=== PATIENT | female | born 1975 | race Caucasian/White ===

== ENCOUNTER 2017-06-07 14:13 | Emergency (ER) | payer OTHER ==
[~2017-06-07] VITALS: Ht 165.1 cm; Wt 109.1 kg
[2017-06-07 14:18] VITALS: BP 136/81; TEMP 98.8
[2017-06-07 15:19] LABS: PH 5 (5-8); URINE APPEARANCE Clear; URINE BACTERIA None Seen /hpf; URINE BILIRUBIN Negative (NEGATIVE); URINE BLOOD Negative (NEGATIVE); URINE COLOR Amber; URINE GLUCOSE Negative (NEGATIVE); URINE KETONE Negative (NEGATIVE); URINE UROBILINOGEN Negative (NEGATIVE)
[2017-06-07] MEDS ORDERED: CYMBALTA 60MG60 MG PO (15:39)
[2017-06-07] MEDS ORDERED: DESYREL 50MG50 MG PO (15:39)
[2017-06-07] MEDS ORDERED: MOBIC15 MG PO (15:40)
[2017-06-07] MEDS ORDERED: ADIPEX-P37.5 MG PO (15:40)
[2017-06-07] MEDS ORDERED: PRIL40 PO (15:40)
[2017-06-07] MEDS ORDERED: NORCO 325 MG-51 TAB PO (16:00)
[2017-06-07 16:08] VITALS: PULSE 89
== END 2017-06-07 16:10 | disposition home or self-care (01) ==
LOC: COL.ER 14:13
PROVIDERS: Physician Assistant
DX: M54.41 Lumbago with sciatica, right side (principal); K21.9 Gastro-esophageal reflux disease without esophagitis
CPT/HCPCS: J1885; J2360

== ENCOUNTER → 2017-07-08 | Outpatient (CLI) | payer OTHER ==
[~2017-07-08] MED LIST: ADIPEX-P37.5 MG PO; CYMBALTA 60MG60 MG PO; DESYREL 50MG50 MG PO; MOBIC15 MG PO; NORCO 325 MG-51 TAB PO; PRIL40 PO
== END ==
LOC: COL.RAD 13:48
DX: M17.0 Bilateral primary osteoarthritis of knee (principal)

== ENCOUNTER 2017-07-09 12:27 | Emergency (ER) | payer OTHER ==
[~2017-07-09] VITALS: Ht 165.1 cm; Wt 109.1 kg
[2017-07-09 12:34] VITALS: BP 132/86; PULSE 107; TEMP 97.6
[2017-07-09] MEDS ORDERED: NORCO 325 MG-51 TAB PO (13:32)
== END 2017-07-09 14:00 | disposition home or self-care (01) ==
LOC: COL.ER 12:27
DX: M25.562 Pain in left knee (principal); M25.561 Pain in right knee

== ENCOUNTER 2017-08-09 15:55 | Emergency (ER) | payer OTHER ==
[~2017-08-09] VITALS: Ht 165.1 cm; Wt 106.8 kg
[2017-08-09 16:03] VITALS: BP 140/87; TEMP 98.4
[2017-08-09] MEDS ORDERED: ROBAXIN 75750 MG/TAB PO (16:32)
[2017-08-09 17:26] VITALS: PULSE 87
== END 2017-08-09 17:28 | disposition home or self-care (01) ==
LOC: COL.ER 15:55
DX: M62.838 Other muscle spasm (principal)
CPT/HCPCS: J1885; J2360

== ENCOUNTER → 2017-10-19 | Outpatient (CLI) | payer OTHER ==
[~2017-10-19] MED LIST changes: +FLEXERIL 1010 MG/TAB PO; +ROBAXIN 75750 MG/TAB PO
== END ==
LOC: COL.RAD 14:23
DX: M16.0 Bilateral primary osteoarthritis of hip (principal); M54.41 Lumbago with sciatica, right side

== ENCOUNTER → 2017-10-29 | Outpatient (CLI) | payer OTHER | LOC: COL.RAD 13:01 | DX: M47.817 Spondylosis without myelopathy or radiculopathy, lumbosacral region (principal) ==

== ENCOUNTER → 2017-11-15 | Outpatient (CLI) | payer OTHER | LOC: COL.RAD 08:30 | DX: R10.32 Left lower quadrant pain (principal) | CPT/HCPCS: J7050; Q9967 ==

== ENCOUNTER → 2018-02-01 | Outpatient (CLI) | payer OTHER ==
[~2018-02-01] MED LIST changes: +NEURONTIN800 MG/TAB PO; +ZANAFLEX2 MG PO; +ZYRTEC 10MG10 MG PO
== END ==
LOC: MHCPAIN 14:42
DX: G89.29 Other chronic pain (principal); M54.16 Radiculopathy, lumbar region; M53.3 Sacrococcygeal disorders, not elsewhere classified
CPT/HCPCS: G0463

== ENCOUNTER → 2018-02-09 | Outpatient (CLI) | payer OTHER ==
[~2018-02-09] VITALS: Ht 165.1 cm; Wt 119.1 kg
[~2018-02-09] MED LIST changes: +FASTIN30 MG PO
[2018-02-09 08:10] VITALS: BP 116/92; PULSE 80
== END ==
LOC: LIGHT 07:54
DX: M54.5 Low back pain (principal); F32.89 Other specified depressive episodes; N39.3 Stress incontinence (female) (male); E66.01 Morbid (severe) obesity due to excess calories; Z68.41 Body mass index [BMI] 40.0-44.9, adult; Z71.3 Dietary counseling and surveillance
CPT/HCPCS: G0463

== ENCOUNTER → 2018-02-10 | Outpatient (CLI) | payer OTHER | LOC: LIGHT 02-09 13:53 | DX: M54.5 Low back pain (principal); F32.89 Other specified depressive episodes; N39.3 Stress incontinence (female) (male); E66.01 Morbid (severe) obesity due to excess calories; Z71.3 Dietary counseling and surveillance | CPT/HCPCS: G0463 ==

== ENCOUNTER → 2018-02-17 | Outpatient (CLI) | payer OTHER | LOC: MHCPAIN 12:56 | DX: M47.817 Spondylosis without myelopathy or radiculopathy, lumbosacral region (principal) | CPT/HCPCS: J1040; Q9967 ==

== ENCOUNTER → 2018-03-22 | Outpatient (CLI) | payer OTHER | LOC: LIGHT 09:47 | DX: Z01.89 Encounter for other specified special examinations (principal) ==

== ENCOUNTER → 2018-03-23 | Outpatient (CLI) | payer OTHER | LOC: MHCPAIN 14:47 | DX: G89.29 Other chronic pain (principal); M47.817 Spondylosis without myelopathy or radiculopathy, lumbosacral region; M53.3 Sacrococcygeal disorders, not elsewhere classified | CPT/HCPCS: G0463 ==

== ENCOUNTER → 2018-03-24 | Outpatient (CLI) | payer OTHER ==
[~2018-03-24] VITALS: Ht 165.1 cm; Wt 118.4 kg
[2018-03-24 16:48] VITALS: BP 100/76; PULSE 96
== END ==
LOC: LIGHT 15:35
DX: M54.5 Low back pain (principal); F32.89 Other specified depressive episodes; N39.3 Stress incontinence (female) (male); E66.01 Morbid (severe) obesity due to excess calories; Z68.41 Body mass index [BMI] 40.0-44.9, adult; Z71.3 Dietary counseling and surveillance
CPT/HCPCS: G0463

== ENCOUNTER → 2018-04-07 | Outpatient (CLI) | payer OTHER | LOC: MHCPAIN 13:25 | DX: M53.3 Sacrococcygeal disorders, not elsewhere classified (principal) | CPT/HCPCS: G0260; J1040; Q9967 ==

== ENCOUNTER → 2018-04-28 | Outpatient (CLI) | payer OTHER ==
[~2018-04-28] VITALS: Ht 165.1 cm; Wt 117.0 kg
== END ==
LOC: LIGHT 03-08 14:13
DX: M54.5 Low back pain (principal); F32.89 Other specified depressive episodes; N39.3 Stress incontinence (female) (male); E66.01 Morbid (severe) obesity due to excess calories; Z71.3 Dietary counseling and surveillance
CPT/HCPCS: G0463

== ENCOUNTER → 2018-05-05 | Outpatient (CLI) | payer OTHER | LOC: COL.RAD 15:27 | DX: M54.6 Pain in thoracic spine (principal); Z87.828 Personal history of other (healed) physical injury and trauma ==

== ENCOUNTER 2018-05-19 13:18 | Emergency (ER) | payer OTHER ==
[~2018-05-19] VITALS: Ht 165.1 cm; Wt 118.6 kg
[2018-05-19 13:21] VITALS: BP 135/89; TEMP 98.8
[2018-05-19 13:36] LABS: COLLECTION METHOD CLEAN CATCH
[2018-05-19 13:46] LABS: MUCOUS Present /lpf; PH 5 (5-8); SQUAMOUS EPITHELIAL 0-2 /hpf; URINE APPEARANCE Clear; URINE BACTERIA Rare /hpf; URINE BILIRUBIN Negative (NEGATIVE); URINE BLOOD Negative (NEGATIVE); URINE COLOR Yellow; URINE GLUCOSE Negative (NEGATIVE); URINE KETONE Negative (NEGATIVE); URINE LEUKOCYTE ESTERASE Negative (NEGATIVE); URINE NITRATE Negative (NEGATIVE); URINE PROTEIN(semi-quant) Negative (NEGATIVE); URINE UROBILINOGEN >=4.0 mg/dL (NEGATIVE)
[2018-05-19] MEDS ORDERED: PAMELOR 25MG25 MG PO (13:46)
[2018-05-19 14:06] LABS: BASO # 0.1 (0.0-0.2); BASO % 0.8 % (0.0-2.0); EOS # 0.1 (0.0-0.7); EOS % 1.8 % (0-4.0); GRAN % 61.8 % (42.2-75.2); HEMOGLOBIN 11.6 g/dl (12.5-16.0); LYMPH # 1.8 (1.2-3.4); LYMPH % 27.5 % (20.0-51.0); MEAN CELL VOLUME 91 fl (80.0-100.0); MEAN CORPUSCULAR HEMOGLOBIN 29 pg (27.0-31.0); MEAN CORPUSCULAR HGB CONC 32 g/dl (33.0-37.0); MEAN PLATELET VOLUME 8.7 fl (7.4-10.4); MONO # 0.5 (0.1-0.6); MONO % 7.6 % (1.7-9.3); PLATELET COUNT 274 K/mm3 (130-400); RED BLOOD COUNT 3.99 M/mm3 (4.10-5.30); REDCELL DISTRIBUTION WIDTH-CV 13.2 % (11.5-14.5)
[2018-05-19 14:16] LABS: ALBUMIN 3.3 gm/dL (3.5-5.0); BILIRUBIN,TOTAL 0.2 mg/dL (0.0-1.0); CALCIUM 8.4 mg/dL (8.4-10.2); CREATININE, serum 0.63 mg/dL (0.52-1.25); HEMATOCRIT 36.4 % (37.0-47.0); POTASSIUM 4.4 mmol/L (3.4-5.0); TOTAL PROTEIN 6.3 gm/dL (6.4-8.2)
[2018-05-19 15:03] VITALS: PULSE 83
== END 2018-05-19 15:04 | disposition home or self-care (01) ==
LOC: COL.ER 13:18
PROVIDERS: Nurse Practitioner
DX: R10.9 Unspecified abdominal pain (principal); Z87.442 Personal history of urinary calculi; Z90.49 Acquired absence of other specified parts of digestive tract; Z98.890 Other specified postprocedural states

== ENCOUNTER → 2018-06-15 | Outpatient (CLI) | payer OTHER ==
[~2018-06-15] MED LIST changes: +PAMELOR 25MG25 MG PO
== END ==
LOC: COL.RAD 13:51
DX: M17.0 Bilateral primary osteoarthritis of knee (principal)

== ENCOUNTER → 2018-06-23 | Outpatient (CLI) | payer OTHER ==
[~2018-06-23] VITALS: Ht 165.1 cm; Wt 117.0 kg
[2018-06-23 15:03] VITALS: BP 120/74; PULSE 84
== END ==
LOC: LIGHT 05-26 13:35
DX: M54.5 Low back pain (principal); F32.9 Major depressive disorder, single episode, unspecified; N39.3 Stress incontinence (female) (male); E66.01 Morbid (severe) obesity due to excess calories; Z68.41 Body mass index [BMI] 40.0-44.9, adult; Z71.3 Dietary counseling and surveillance
CPT/HCPCS: G0463

== ENCOUNTER → 2018-07-25 | Outpatient (CLI) | payer OTHER ==
[~2018-07-25] VITALS: Ht 165.1 cm; Wt 116.8 kg
[2018-07-25 17:06] VITALS: BP 110/86; PULSE 76
== END ==
LOC: LIGHT 07-11 11:56
DX: M54.5 Low back pain (principal); F32.9 Major depressive disorder, single episode, unspecified; N39.3 Stress incontinence (female) (male); E66.9 Obesity, unspecified; Z68.41 Body mass index [BMI] 40.0-44.9, adult; Z71.3 Dietary counseling and surveillance
CPT/HCPCS: G0463

== ENCOUNTER → 2018-08-18 | Outpatient (CLI) | payer OTHER | LOC: BHSO 08:59 | DX: M54.5 Low back pain (principal); F32.9 Major depressive disorder, single episode, unspecified; E66.01 Morbid (severe) obesity due to excess calories; Z68.42 Body mass index [BMI] 45.0-49.9, adult; Z71.3 Dietary counseling and surveillance ==

== ENCOUNTER → 2018-09-01 | Outpatient (CLI) | payer OTHER ==
[~2018-09-01] VITALS: Ht 165.1 cm; Wt 114.8 kg
[2018-09-01 16:29] VITALS: BP 128/90; PULSE 88
== END ==
LOC: LIGHT 11:19
DX: M54.5 Low back pain (principal); F32.9 Major depressive disorder, single episode, unspecified; E66.01 Morbid (severe) obesity due to excess calories; Z68.42 Body mass index [BMI] 45.0-49.9, adult; Z71.3 Dietary counseling and surveillance
CPT/HCPCS: G0463

== ENCOUNTER → 2018-10-10 | Outpatient (CLI) | payer OTHER | LOC: LIGHT 09:49 | DX: Z01.818 Encounter for other preprocedural examination (principal); Z68.41 Body mass index [BMI] 40.0-44.9, adult ==

== ENCOUNTER 2018-10-19 08:50 | Day surgery (SDC) | payer OTHER ==
[2018-10-19] VITALS (13 sets, daily range): BP systolic 15–153; BP diastolic 62–92; PULSE 72–100; TEMP 98.2
[~2018-10-19] VITALS: Ht 165.1 cm; Wt 110.5 kg
[~2018-10-19 08:50] MED LIST changes: +NORCO 325 MG-7.1 TAB PO; +ZANAFLEX 4MG TAB4 MG PO; -ZANAFLEX2 MG PO
[2018-10-19] MEDS ORDERED: SINGULAIR 110 MG/TAB PO (09:33)
[2018-10-19] MEDS ORDERED: NASONEX SPRAY17 GM NS (09:33)
[2018-10-19] MEDS ORDERED: ATROVENT NASAL15 ML NS (09:34)
[2018-10-19] MEDS ORDERED: BIOTIN10000 MC1 PO (09:35)
[2018-10-20 00:14] VITALS: BP 129/80; PULSE 75; TEMP 98.5
[2018-10-20 04:00] VITALS: BP 151/93; PULSE 102; TEMP 98.6
[2018-10-20 08:57] VITALS: BP 140/84; PULSE 103; TEMP 97.5
[2018-10-20 12:32] VITALS: BP 114/72; PULSE 76; TEMP 98.3
[2018-10-20] MEDS ORDERED: NORCO 325 MG-7.1 TAB PO (13:23)
== END 2018-10-20 13:50 | disposition home or self-care (01) ==
LOC: SDCO 08:50 → SURG 14:18 → SDCO 10-20 13:50
DX: E66.01 Morbid (severe) obesity due to excess calories (principal); Z68.41 Body mass index [BMI] 40.0-44.9, adult; K21.9 Gastro-esophageal reflux disease without esophagitis; F32.9 Major depressive disorder, single episode, unspecified; F51.04 Psychophysiologic insomnia; G89.29 Other chronic pain; M54.40 Lumbago with sciatica, unspecified side; Z79.899 Other long term (current) drug therapy
CPT/HCPCS: OP; J0360; J0690; J1100; J1170; J1885; J2250; J2405; J2704; J2765; J3010; J7120

== ENCOUNTER 2018-10-21 19:39 | Emergency (ER) | payer OTHER ==
[~2018-10-21] VITALS: Ht 165.1 cm; Wt 111.4 kg
[~2018-10-21 19:39] MED LIST changes: +ATROVENT NASAL15 ML NS; +BIOTIN10000 MC1 PO; +NASONEX SPRAY17 GM NS; +SINGULAIR 110 MG/TAB PO
[2018-10-21 19:43] VITALS: BP 130/77; PULSE 101; TEMP 98
== END 2018-10-21 20:55 | disposition left against medical advice (07) ==
LOC: COL.ER 19:39
DX: L76.82 Other postprocedural complications of skin and subcutaneous tissue (principal); Z98.890 Other specified postprocedural states; Z79.899 Other long term (current) drug therapy

== ENCOUNTER → 2018-10-31 | Outpatient (CLI) | payer OTHER ==
[~2018-10-31] VITALS: Ht 165.1 cm; Wt 105.5 kg
[2018-10-31 12:55] VITALS: BP 124/60; PULSE 100
== END ==
LOC: LIGHT 08:11
DX: M54.5 Low back pain (principal); F32.9 Major depressive disorder, single episode, unspecified; Z98.84 Bariatric surgery status; E66.01 Morbid (severe) obesity due to excess calories; Z68.38 Body mass index [BMI] 38.0-38.9, adult; Z71.3 Dietary counseling and surveillance

== ENCOUNTER → 2018-11-28 | Outpatient (CLI) | payer OTHER ==
[~2018-11-28] VITALS: Ht 165.1 cm; Wt 99.8 kg
[2018-11-28 16:26] VITALS: BP 114/78; PULSE 64
== END ==
LOC: LIGHT 14:15
DX: M54.5 Low back pain (principal); F32.9 Major depressive disorder, single episode, unspecified; Z98.84 Bariatric surgery status; E66.01 Morbid (severe) obesity due to excess calories; Z68.36 Body mass index [BMI] 36.0-36.9, adult; Z71.3 Dietary counseling and surveillance

== ENCOUNTER → 2019-02-20 | Outpatient (CLI) | payer OTHER ==
[~2019-02-20] VITALS: Ht 165.1 cm; Wt 90.5 kg
[~2019-02-20] MED LIST changes: +ACIDOPHILIS PO; +CALCIUM CITRATE1 TA7 PO; +FLINTSTONES COM1 CT1 PO; +KRILL OIL 3001 EACH PO; +VITAMIN B-1000 MCG/T SL; +VITAMIN D31000 I1 PO
[2019-02-20 15:35] VITALS: BP 120/80; PULSE 80
== END ==
LOC: LIGHT 02-06 14:52
DX: M54.5 Low back pain (principal); F32.9 Major depressive disorder, single episode, unspecified; Z98.84 Bariatric surgery status; E66.01 Morbid (severe) obesity due to excess calories; Z68.33 Body mass index [BMI] 33.0-33.9, adult; Z71.3 Dietary counseling and surveillance
CPT/HCPCS: G0463

== ENCOUNTER 2019-10-09 15:01 | Emergency (ER) | payer SELFPAY ==
[~2019-10-09] VITALS: Ht 165.1 cm; Wt 77.3 kg
[2019-10-09 15:25] VITALS: TEMP 98.7
[2019-10-09 15:59] LABS: BASO % 0.6 % (0.0-2.0); EOS # 0.1 (0.0-0.7); EOS % 0.8 % (0-4.0); GRAN # 5.4 (1.4-6.5); GRAN % 76.3 % (42.2-75.2); HEMATOCRIT 44.3 % (37.0-47.0); HEMOGLOBIN 14.6 g/dl (12.5-16.0); LYMPH # 1.1 (1.2-3.4); LYMPH % 15.7 % (20.0-51.0); MEAN CELL VOLUME 88 fl (80.0-100.0); MEAN CORPUSCULAR HEMOGLOBIN 29 pg (27.0-31.0); MEAN CORPUSCULAR HGB CONC 33 g/dl (33.0-37.0); MEAN PLATELET VOLUME 8.6 fl (7.4-10.4); MONO # 0.4 (0.1-0.6); MONO % 6.2 % (1.7-9.3); PLATELET COUNT 374 K/mm3 (130-400); RED BLOOD COUNT 5.02 M/mm3 (4.10-5.30); REDCELL DISTRIBUTION WIDTH-CV 12.7 % (11.5-14.5)
[2019-10-09 16:04] LABS: COLLECTION METHOD CLEAN CATCH
[2019-10-09 16:12] LABS: ALBUMIN 4.6 gm/dL (3.5-5.0); BILIRUBIN,TOTAL 0.5 mg/dL (0.0-1.0); C-REACTIVE PROTEIN 0.8 mg/dL (0.0-0.9); CALCIUM 9.7 mg/dL (8.4-10.2); CREATININE, serum 0.62 (0.52-1.25); POTASSIUM 4.1 mmol/L (3.4-5.0); TOTAL PROTEIN 8.7 gm/dL (6.4-8.2)
[2019-10-09] MEDS ORDERED: ROXICODONE15 MG PO (16:12)
[2019-10-09 16:17] LABS: MUCOUS Present /lpf; PH 5 (5-8); URINE APPEARANCE Hazy; URINE BACTERIA Rare /hpf; URINE BILIRUBIN Negative (NEGATIVE); URINE BLOOD 3+ (NEGATIVE); URINE COLOR Yellow; URINE GLUCOSE Negative (NEGATIVE); URINE KETONE Trace (NEGATIVE); URINE LEUKOCYTE ESTERASE Negative (NEGATIVE); URINE NITRATE Negative (NEGATIVE); URINE PROTEIN(semi-quant) Negative (NEGATIVE); URINE RBC 0-2 /hpf; URINE UROBILINOGEN Negative (NEGATIVE)
[2019-10-09] MEDS ORDERED: ZOFRAN ODT4 MG PO (17:44)
[2019-10-09] MEDS ORDERED: ATIVAN 1MG T1 MG/TAB PO (17:44)
[2019-10-09 18:00] VITALS: BP 95/87; PULSE 87
== END 2019-10-09 18:10 | disposition home or self-care (01) ==
LOC: COL.ER 15:01
PROVIDERS: Family Medicine
DX: F11.23 Opioid dependence with withdrawal (principal)
CPT/HCPCS: J2060; J2550; J7030